=== PATIENT | male | born 1945 | race Caucasian/White ===

== ENCOUNTER → 2020-05-17 | Outpatient (REF) | payer OTHER ==
[~2020-05-17] MED LIST: PRED10TA2
== END ==
LOC: M LAB REF 09:27
PROVIDERS: ATTEND Dermatology
DX: C44.211 Basal cell carcinoma of skin of unspecified ear and external auricular canal (principal)

== ENCOUNTER → 2024-05-19 | Outpatient (CLI) | payer OTHER, MEDICARE | LOC: M PLAIMG 09:16 | PROVIDERS: ATTEND Physician Assistant | DX: I42.9 Cardiomyopathy, unspecified (principal); I35.1 Nonrheumatic aortic (valve) insufficiency; Z95.2 Presence of prosthetic heart valve; I27.20 Pulmonary hypertension, unspecified ==